=== PATIENT | male | born 1985 | race American Indian/Alaskan Native ===

== ENCOUNTER 2020-02-12 05:51 | Emergency (ER) | payer SELFPAY ==
[2020-02-12 06:00] VITALS: BP 127/81
[2020-02-12] MEDS ORDERED: KETOROLAC 30 MG/1 ML INJ IM ONE (06:20)
[2020-02-12] MEDS ORDERED: BUTALB/ACETAMINOPHEN/CAFFEINE TAB PO ONE (06:20)
[2020-02-12] MEDS ORDERED: ONDANSETRON 4 MG ODT TAB PO ONE (06:20)
[2020-02-12] MEDS ORDERED: AMOXICILLIN/K CLAV 875/125MG TAB PO ONE (06:21)
--- NOTE | 2020-02-12 06:26 | Emergency Department Report ---
ED General Adult HPI - General Chief complaint: Headache Stated complaint: HEAD PAIN Source: patient Mode of arrival: Ambulatory Limitations: No Limitations - History of Present Illness Initial comments: Patient is a 34-year-old -[place] male with no past medical history presents to the ED with complaint of acute onset persistent frontal headache intermittently for the last 2 weeks. Patient states that the headache mainly occurs at night when he lays down to sleep. Patient states that in the last 3 days, he has been taking [id number] pain medications with no relief. Patient states that the last time he took ibuprofen for the headache was 24 hours ago. Patient states that this morning he woke up with worsening headache and to return to the ED for evaluation. Patient states that no one else at home is had similar symptoms. Patient denies change in vision, syncope, seizures, fever, chills, cough, sore throat, nasal and sinus congestion, abdominal pain, chest pain, shortness of breath, neck pain, dizziness, lightheadedness, traumatic injury or fall. MD Complaint: Frontal headache -: Sudden, week(s) (2) Location: head Radiation: non-radiation Severity scale (0 -10): 7 Quality: aching Consistency: constant Worsens with: none Associated Symptoms: denies other symptoms, headaches. denies: confusion, chest pain, cough, fever/chills, loss of appetite, malaise, nausea/vomiting, rash, seizure, shortness of breath, syncope, weakness, other Treatments Prior to Arrival: none - Related Data Previous Rx's Medication Instructions Recorded Last Taken Type Amoxicillin [Amoxicillin TAB] 875 mg PO Q12H #20 tablet 02/12/20 Unknown Rx Butalb/Acetamin/Caff 50-325-40 1 - 2 tab PO Q6HR PRN #15 tab 02/12/20 Unknown Rx [Fioricet 50-325-40] Ketorolac [Toradol] 10 mg PO Q8H PRN #20 tablet 02/12/20 Unknown Rx Ondansetron [Zofran Odt] 4 mg PO Q6HR PRN #15 tab.rapdis 02/12/20 Unknown Rx Allergies Allergy/AdvReac Type Severity Reaction Status Date / Time No Known Allergies Allergy Verified 02/12/20 06:00 ED Review of Systems ROS: Stated complaint: HEAD PAIN Other details as noted in HPI Constitutional: denies: chills, fever Eyes: denies: eye pain, eye discharge, vision change ENT: congestion, other (Frontal sinus pressure and headache). denies: ear pain, throat pain Respiratory: denies: cough, shortness of breath, wheezing Cardiovascular: denies: chest pain, palpitations Endocrine: no symptoms reported Gastrointestinal: denies: abdominal pain, nausea, vomiting, diarrhea Genitourinary: denies: urgency, dysuria Musculoskeletal: denies: back pain, joint swelling, arthralgia Skin: denies: rash, lesions Neurological: headache (Frontal sinus pressure and headache). denies: weakness, paresthesias Psychiatric: denies: anxiety, depression Hematological/Lymphatic: denies: easy bleeding, easy bruising ED Past Medical Hx - Past Medical History Previous Medical History?: No - Surgical History Past Surgical History?: Yes Additional Surgical History: colostomy and reversile - Social History Smoking Status: Current Every Day Smoker Substance Use Type: Alcohol - Medications Home Medications: Home Medications Medication Instructions Recorded Confirmed Last Taken Type Amoxicillin [Amoxicillin TAB] 875 mg PO Q12H #20 tablet 02/12/20 Unknown Rx Butalb/Acetamin/Caff 50-325-40 1 - 2 tab PO Q6HR PRN #15 tab 02/12/20 Unknown Rx [Fioricet 50-325-40] Ketorolac [Toradol] 10 mg PO Q8H PRN #20 tablet 02/12/20 Unknown Rx Ondansetron [Zofran Odt] 4 mg PO Q6HR PRN #15 tab.rapdis 02/12/20 Unknown Rx ED Physical Exam - General Limitations: No Limitations General appearance: alert, in no apparent distress - Head Head exam: Present: atraumatic, normocephalic, normal inspection - Eye Eye exam: Present: normal appearance, PERRL, EOMI Pupils: Present: normal accommodation - ENT ENT exam: Present: normal orophraynx, mucous membranes moist, TM's normal bilaterally, normal external ear exam, other (Palpable frontal sinus tenderness) - Neck Neck exam: Present: normal inspection, full ROM - Respiratory Respiratory exam: Present: normal lung sounds bilaterally. Absent: respiratory distress, wheezes, rhonchi, stridor, chest wall tenderness, accessory muscle use, decreased breath sounds, prolonged expiratory - Cardiovascular Cardiovascular Exam: Present: regular rate, normal rhythm, normal heart sounds. Absent: systolic murmur, diastolic murmur, rubs, gallop - GI/Abdominal GI/Abdominal exam: Present: soft, normal bowel sounds. Absent: tenderness, guarding, rebound, hyperactive bowel sounds, hypoactive bowel sounds, organomegaly - Extremities Exam Extremities exam: Present: normal inspection, normal capillary refill - Back Exam Back exam: Present: normal inspection, full ROM. Absent: tenderness, CVA t enderness (R), CVA tenderness (L), muscle spasm, paraspinal tenderness, vertebral tenderness - Neurological Exam Neurological exam: Present: alert, oriented X3, CN II-XII intact, normal gait, reflexes normal - Psychiatric Psychiatric exam: Present: normal affect, normal mood - Skin Skin exam: Present: warm, dry, intact, normal color. Absent: rash ED Course Vital Signs 02/12/20 05:54 Temperature 97.7 F Pulse Rate 82 Respiratory 16 Rate Blood Pressure 127/81 O2 Sat by Pulse 96 Oximetry ED Medical Decision Making - Medical Decision Making This is a 34-year-old -[place] male with no past medical history presents to the ED with complaint of acute onset persistent frontal headache intermittently for the last 2 weeks. Patient states that the headache mainly occurs at night when he lays down to sleep. Patient states that in the last 3 days, he has been taking [id number] pain medications with no relief. Patient states that the last time he took ibuprofen for the headache was 24 hours ago. Patient states that this morning he woke up with worsening headache and to return to the ED for evaluation. Patient states that no one else at home is had similar symptoms. In the ED, patient is alert and oriented x3 and is not in any distress. Patient is hemodynamically stable, and has not exhibited any neurological signs and symptoms. Patient was treated for headache in the ED and was discharged home with pain medications and empirically on antibiotics for suspected acute frontal sinusitis. Patient was advised to follow-up with his primary care physician in 7 to 10 days for reevaluation or return to the ED immediately if symptoms get worse. - Differential Diagnosis Sinusis; URI; Cluster headache; Migraine headache; Critical care attestation.: If time is entered above; I have spent that time in minutes in the direct care of this critically ill patient, excluding procedure time. ED Disposition Clinical Impression: Sinus headache, Acute non-recurrent frontal sinusitis Disposition: DC- TO HOME OR SELFCARE Is pt being admited?: No Does the pt Need Aspirin: No Condition: Stable Instructions: Sinusitis, Adult, [id number], Upper Respiratory Infection, Adult, [id number], Sinus Headache, [id number] Additional Instructions: Your symptoms are likely due to acute frontal sinusitis causing the headache. Take medications with food, drink plenty of fluids and follow-up with your primary care physician in 7 to 10 days for reevaluation. Return to the ED immediately if symptoms get worse. Prescriptions: Amoxicillin [Amoxicillin TAB] 875 mg PO Q12H #20 tablet Butalb/Acetamin/Caff 50-325-40 [Fioricet 50-325-40] 1 - 2 tab PO Q6HR PRN #15 tab PRN Reason: Headache Ketorolac [Toradol] 10 mg PO Q8H PRN #20 tablet PRN Reason: Pain Ondansetron [Zofran Odt] 4 mg PO Q6HR PRN #15 tab.rapdis PRN Reason: Nausea Referrals: [facility] [Provider Group] - 7-10 days Time of Disposition: 06:23 Print Language: URDU
== END 2020-02-12 07:04 | disposition home or self-care (01) ==
LOC: ED 05:51
DX: R51.9 Headache, unspecified (principal); J01.10 Acute frontal sinusitis, unspecified; F17.200 Nicotine dependence, unspecified, uncomplicated; Z79.2 Long term (current) use of antibiotics; Z79.899 Other long term (current) drug therapy
CPT/HCPCS: 96372; 99282; J1885; Q0162